=== PATIENT | male | born 1995 ===

== ENCOUNTER 2020-01-14 14:21 | Inpatient (IN) | payer MEDICAID, SELFPAY ==
[2020-01-14 14:29] VITALS: BMI 23.0
--- NOTE | 2020-01-14 14:31 | ED_ITS ---
HPI - SOB/Dyspnea General: Chief Complaint: Psychiatric Symptoms Stated Complaint: si Time Seen by Provider: 01/14/20 14:24 Source: patient Mode of arrival: ambulatory Limitations: no limitations History of Present Illness: HPI Narrative: 24-year-old male who states he has had suicidal thoughts for the last month. He is on duloxetine but states that it is not helping and he is had increasing suicidality. Patient voluntarily wants to be admitted. He denies any worsening or improving factors. Associated symptoms: Deny abdominal pain, chest pain, fever(s), nausea or vomiting Review of Systems Const: Denies: fever(s), chills, body aches or change in appetite Eyes: Denies: blurry vision or eye discomfort ENMT: Denies: throat pain or dental pain Card: Denies: chest pain Resp: Denies: dyspnea GI: Denies: abdominal pain, nausea, vomiting or diarrhea : Denies: dysuria Musc: Denies: neck pain or back pain Skin/Breast: Denies: rash Neuro: Denies: headache(s) Psych: Reports: depression and suicidal ideation Jesus/Lymph: Denies: easy bruising All/Imm: Denies: urticaria Physical Exam Const: COMMON NORMALS: no acute distress, patient oriented x3 and healthy appearing HENMT: COMMON NORMALS: normocephalic and atraumatic HEAD & SCALP: normocephalic and atraumatic Eye: COMMON NORMALS: Equal, round and reactive pupils present and EOMs intact bilaterally PUPIL: Yes Equal, round and reactive pupils present Neck/C-Spine: COMMON NORMALS: full ROM and supple Chest: COMMONS NORMALS: normal inspection of the chest and normal palpation of entire chest wall Resp: COMMON NORMALS: normal respiratory effort, No retractions, No use of accessory muscles and clear to auscultation bilaterally AUSCULTATION: clear to auscultation bilaterally Cardio: COMMON NORMALS: regular rate, regular rhythm and No murmurs present (Cardio) RATE: regular rate RHYTHM: regular rhythm GI: COMMON NORMALS: Normal to inspection, nondistended, normoactive bowel sounds present, Soft to palpation, non-tender and no masses PALPATION: Yes Soft to palpation Extremity: COMMON NORMALS: normal to inspection and full ROM Neuro: COMMON NORMALS: patient oriented x3, moves all extremities and no focal motor deficits Psych: COMMON NORMALS: mental status grossly normal, Normal thought process present and cooperative THOUGHT PROCESS: Normal thought process present THOUGHT CONTENT: Yes Suicidality present Skin: COMMON NORMALS: no rashes or lesions noted and no wounds GENERAL SKIN EXAM: no rashes or lesions noted Course Vital Signs: Vital signs: Vital Signs Temperature 98.2 F 01/14/20 14:33 Pulse Rate 90 01/14/20 14:33 Respiratory Rate 16 01/14/20 14:33 Blood Pressure 127/83 01/14/20 14:33 Pulse Oximetry 98 01/14/20 14:33 MDM - SOB/Dyspnea MDM Narrative: Medical decision making narrative: Patient presents here with suicidal ideation and patient is voluntary. I spoke to Dr. Villalpando of psychiatry and will admit. Patient is medically cleared. Lab Data: Labs: Lab Results 01/14/20 01/14/20 01/14/20 Range/Units 14:45 14:45 14:50 WBC 7.7 (4.0-10.0) 10^3/ uL RBC 4.82 (4.1-5.3) 10^6/u L Hgb 13.9 (11.7-16.6) g/dL Hct 42.6 (42.0-52.0) % MCV 88.4 (80-94) fL MCH 28.8 (28.0-34.0) pg MCHC 32.6 (30.0-36.0) g/dL RDW 12.4 (12.1-15.1) % Plt Count 255 (130-400) 10^3/c mm MPV 9.5 (7.4-10.4) fL Neut % (Auto) 56.5 % Lymph % (Auto) 34.7 % Thayer % (Auto) 6.8 % Eos % (Auto) 1.3 % Baso % (Auto) 0.4 % Neut # (Auto) 4.3 (1.8-7.7) 10^3/u L Lymph # (Auto) 2.7 (0.8-4.8) 10^3/u L Thayer # (Auto) 0.5 (0.2-0.9) 10^3/u L Eos # (Auto) 0.1 (0.0-0.8) 10^3/u L Baso # (Auto) 0.0 (0.0-0.1) 10^3/u L Nucleated RBC % (a uto) 0 % Nucleated RBCs # 0.0 /100WBC Sodium 140 (136-145) mmol/L Potassium 3.9 (3.5-5.1) mmol/L Chloride 102 (98-107) mmol/L Carbon Dioxide 27 (22-29) mmol/L Anion Gap 14.9 (5-19) BUN 9 (6-20) mg/dL Creatinine 0.9 (0.7-1.2) mg/dL GFR Calculation 104.6 (90-130) mL/min Glucose 100 (65-115) mg/dL Calculated Osmolal ity 286 (285-295) mOsm/k g Calcium 10.5 (8.5-10.5) mg/dL Total Bilirubin 0.4 (0.15-1.2) mg/dL AST 25 (0-40) U/L ALT 21 (0-41) U/L Alkaline Phosphata se 53 (40-130) IU/L Total Protein 7.6 (6.6-8.7) g/dL Albumin 5.0 (3.5-5.2) g/dL Globulin 2.6 (1.3-4.6) g/dL Salicylates < 0.3 L (3-10) mg/dL Urine Opiates Scre en Negative (Negative) ng/mL Acetaminophen < 5.0 L (10-30) ug/mL Ur Barbiturates Sc reen Negative (Negative) ng/mL Ur Phencyclidine S crn Negative (Negative) ng/mL Ur Amphetamines Sc reen Negative (Negative) ng/mL U Benzodiazepines Scrn Negative (Negative) ng/mL Urine Cocaine Scre en Negative (Negative) ng/mL U Marijuana (THC) Screen Positive H (Negative) ng/mL Ethyl Alcohol < 10 (0-10) mg/dL Discharge Plan Discharge Patient Disposition: Admitted As Inpatient Clinical Impression: Suicidal ideation Condition: Stable Referrals: Tamiko Alvarado APRN [Primary Care Provider] - Coding Level of Care Code ED Drive Away Driver for g Fwd Exam Comprehensive
[2020-01-14 14:33] VITALS: BP 127/83; PULSE 90; RESP 16; TEMP 36.8; O2SAT 98
[2020-01-14 14:55] LABS: Basophils % 0.4 %; Eosinophils # 0.1 10^3/uL (0.0-0.8); Eosinophils % 1.3 %; Hematocrit 42.6 % (42.0-52.0); Hemoglobin 13.9 g/dL (11.7-16.6); Lymphocytes # 2.7 10^3/uL (0.8-4.8); Lymphocytes % 34.7 %; Mean Corpuscular HGB Conc 32.6 g/dL (30.0-36.0); Mean Corpuscular Hemoglobin 28.8 pg (28.0-34.0); Mean Corpuscular Volume 88.4 fL (80-94); Mean Platelet Volume 9.5 fL (7.4-10.4); Monocytes # 0.5 10^3/uL (0.2-0.9); Monocytes % 6.8 %; Neutrophils # 4.3 10^3/uL (1.8-7.7); Neutrophils % 56.5 %; Nucleated Red Blood Cells % 0 %; Platelet Count 255 10^3/cmm (130-400); Red Blood Count 4.82 10^6/uL (4.1-5.3); Red Cell Distribution Width 12.4 % (12.1-15.1); White Blood Count 7.7 10^3/uL (4.0-10.0)
[2020-01-14 15:20] LABS: Amphetamines Screen Urine Negative (Negative); Barbiturates Screen Urine Negative (Negative); Benzodiazepines Screen Urine Negative (Negative); Cocaine Screen Urine Negative (Negative); Opiate Screen Urine Negative (Negative); PCP Screen Urine Negative (Negative); THC Screen Urine Positive (Negative)
[2020-01-14 15:21] LABS: Alanine Aminotransferase 21 U/L (0-41); Alkaline Phosphatase 53 IU/L (40-130); Anion Gap 14.9 (5-19); Aspartate Amino Transferase 25 U/L (0-40); Blood Urea Nitrogen 9 mg/dL (6-20); Calcium 10.5 mg/dL (8.5-10.5); Carbon Dioxide 27 mmol/L (22-29); Chloride 102 mmol/L (98-107); Globulin 2.6 g/dL (1.3-4.6); Glomerular Filtration Rate 104.6 mL/min (90-130); Glucose 100 mg/dL (65-115); Osmolality Calculated 286 mOsm/kg (285-295); Potassium 3.9 mmol/L (3.5-5.1); Sodium 140 mmol/L (136-145); Total Bilirubin 0.4 mg/dL (0.15-1.2); Total Protein 7.6 g/dL (6.6-8.7)
[2020-01-14 15:33] LABS: Acetaminophen < 5.0 ug/mL (10-30); Alcohol Level < 10 mg/dL (0-10); Salicylate < 0.3 mg/dL (3-10)
[2020-01-14 16:24] VITALS: RESP 16
[2020-01-14 16:35] VITALS: BP 121/100; PULSE 66; RESP 18; TEMP 36.2
[2020-01-14] MEDS: nicotine 21 mg Patch 1 PATCH TRANSDERMA (17:32)
--- NOTE | 2020-01-14 17:44 | PC.NURSE ---
pt note regarding nicotine patch. PTS WRIST IDENTIFICATIONJ BRACELET WOULD NOT SCAN ATTEMPTED REPLACING WRISTBAND SECOND BAND FAILED TO SCAN WELL. ADMINISTERED NICOTINE PATCH AFTER VERIFYING CLIENTS AND NAME BY HAVING CLIENT PROVIDE THIS INFORMATION TO ME. PATCH WAS ADMINISTERED TO CLIENTS RIGHT UPPER ARM.
--- NOTE | 2020-01-14 17:47 | PC.PHAR ---
PHARMACY NOTE CLIENTS IDENTIFICATION FAILED TO SCAN REPLACED IT WITH ANOTHER ID BRACELET WHICH ALSO FAILED TO SCAN. AT THIS POINT CLIENT WAS BECOMING QUITE AGITATED. ADMINISTERED NICOTINE TO CLIENTS RT UPPER ARM AFTER HAVING CLIENT CONFIRM HIS D.O.B AND FULL DAKOTAH PRIOR TO ADMINISTERING THE PATCH.
[2020-01-14 20:20] VITALS: BP 112/69; PULSE 76; RESP 18; TEMP 36.6; O2SAT 98
[2020-01-14] MEDS: hyDROXYzine 25 mg Capsule 50 MG PO (20:45)
[2020-01-14] MEDS: duloxetine 30 mg Capsule PO (20:45)
[2020-01-14] MEDS: trazodone 50 mg Tablet PO (20:45)
[2020-01-15 06:00] VITALS: BP 102/68; PULSE 54; RESP 16; TEMP 36.4; O2SAT 98
[2020-01-15] MEDS: duloxetine 30 mg Capsule PO ×2 (08:09→16:55)
--- NOTE | 2020-01-15 08:28 | P.HP_ITS ---
Providers/Chief Complaint Admitting Physician: Kwasi Villalpando Primary Care Provider: Tamiko Alvarado APRN Chief Complaint: si HPI NPU History of Present Illness Ramon Eduardo is a 24 year old male who had been doing well until about 6 weeks ago. He had been receiving duloxetine 30 mg/day and it was increased to twice daily dosage without improvement. He reports despondent mood, irritability, suicidal ideation, lack of motivation and other symptoms of a d epressive episode. He came in voluntarily because of suicidal ideation. The patient also complains of intense anxiety. He is constantly nervous and his duloxetine has not helped with this or his depression. He does not have a pain problem and it is being used strictly as a psychopharmacotherapeutic agent. The patient had his first hospitalization for depression several years ago. He cannot remember a specific drug that was actually helpful because most of the time he was abusing drugs, which he has now discontinued with the exception of cannabinoids. He is leery of discontinuing his duloxetine cold because he says, I hurt if he does not maintain consistent compliance. I assured him this would not be the case whatever pharmacotherapy we settle on. Review of Systems Narrative: Denies: fever(s), chills, body aches or change in appetite Eyes: Denies: blurry vision or eye discomfort ENMT: Denies: throat pain or dental pain Card: Denies: chest pain Resp: Denies: dyspnea GI: Denies: abdominal pain, nausea, vomiting or diarrhea : Denies: dysuria Musc: Denies: neck pain or back pain Skin/Breast: Denies: rash Neuro: Denies: headache(s) Psych: Reports: depression and suicidal ideation Hem/Lymph: Denies: easy bruising All/Imm: Denies: urticaria Meds NPU Home Medications Medication Instructions Recorded Confirmed Last Taken Type duloxetine 30 mg PO BID 01/14/20 01/15/20 01/14/20 History ibuprofen 200 - 800 mg PO PRN 01/14/20 01/14/20 Unknown History Allergies Allergy/AdvReac Type Severity Reaction Status Date / Time morphine Allergy ALGY-Hives Verified 01/14/20 14:36 PFSH NPU PFSH: Medical History (Updated 01/15/20 @ 08:52 by Kwasi Villalpando) Major depressive disorder with current active episode Family History (Updated 01/15/20 @ 08:47 by Kwasi Villalpando) Father , Accidental drug overdose in his 30s. Psychiatric illness, Onset Age: 16 Accidental drug overdose in his 30s Mother , Accidental drug overdose at age 32. Psychiatric illness, Onset Age: 16 Accidental drug overdose at age 33. Other Psychiatric History: Other Psychiatric History: The patient's been hospitalized once for depression. He also has a problem with rage, which nearly broke up his marriage, now more stable. He cannot think of any pharmacotherapeutic agent which was really helpful, since he has not been clean and sober until now. He does not know that noncompliance with the duloxetine causes him to hurt . Mental Status Exam MSE Comments: Mr. Navarro is a 24-year-old male who presents at his stated age. Habitus is somewhat disheveled. He is flattened, almost got. Mood is clearly depressed and affect is flat. Thought processes are integrated and free of any racing, blocking or looseness of association. Speech is of normal rate and volume, free of dysarthria, aprosody or pressure. There are no psychotic symptoms, such as but not limited to hallucinations, delusions, ideas of reference, etc. Cognitive functions are quite good. 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 He has no suicidal or homicidal ideation, plan or intent now that he has hope of meaningful treatment. He does complain of significant anxiety. There are no odd behaviors. Aims score is 0 Vitals/I&O/Wt Last Vital Signs Temp 97.5 F L 01/15/20 06:00 Pulse 54 L 01/15/20 06:00 Resp 16 01/15/20 06:00 BP 102/68 01/15/20 06:00 Pulse Ox 98 01/15/20 06:00 Weight last 48 hrs Weight 165 lb Data NPU : 01/14/20 14:45 01/14/20 14:45 A&P Assessment and plan (1) Major depressive disorder with current active episode: In light of the failed efficacy of duloxetine, I will proceed to sertraline titration, which has the potential to address his anxiety disorder as well as his depression I explained risks and benefits. He elects to proceed and is certainly competent, per my assessment today, to make that decision. Status: Acute (2) Suicidal ideation: We will monitor for safety and treat his depression and anxiety. Status: Acute Involuntary Hold Information 96 Hour Hold: 96 Hour Involuntary Admission: No Attestations NPU Medical Necessity Statement*: This is essentially an untreated depression. I anticipate 5 to 7 nights resolving the acute crisis and establishing a safe referral to aftercare Time Spent in Patient Care: Greater than 35 minutes (Review of the records, and interview of the patient for the first time. Documenting findings. Consultation with marketing planner and charge nurse.) (>than 50% of time spent in counselling and/or direct pt care on unit) . Total time spent with patient: 1 hour Coding Level of Care Code Acute Baker [employer]uit for g Fwd Diagnoses Major depressive disorder with current active episode F32.9 Suicidal ideation R45.852
[2020-01-15] MEDS: sertraline 50 mg Tablet PO (10:01)
[2020-01-15 13:31] VITALS: BP 108/50; PULSE 67; RESP 16; TEMP 36.8; O2SAT 98
[2020-01-15] MEDS: nicotine 21 mg Patch 1 PATCH TRANSDERMA (17:34)
[2020-01-15] MEDS: trazodone 50 mg Tablet PO (20:42)
[2020-01-15] MEDS: hyDROXYzine 25 mg Capsule 50 MG PO (20:49)
[2020-01-15] MEDS: acetaminophen 325 mg Tablet 650 MG PO (20:58)
[2020-01-15 21:41] VITALS: BP 104/64; PULSE 46; RESP 17; TEMP 36.8; O2SAT 83
--- NOTE | 2020-01-15 23:26 | PC.NURSE ---
Per pt request, pt was given Tylenol for headache and Trazodone for sleep.
[2020-01-16 06:00] VITALS: BP 91/49; PULSE 54; RESP 16; TEMP 36.4; O2SAT 98
[2020-01-16] MEDS: duloxetine 30 mg Capsule PO ×2 (08:23→17:05)
[2020-01-16] MEDS: sertraline 50 mg Tablet PO (08:23)
--- NOTE | 2020-01-16 11:21 | P.PN_ITS ---
Subjective NPU Subjective: Interval history: The patient remains significantly anxious. His mood is stabilizing and he may soon be free of suicidal ideation. He has tolerated 50 mg of sertraline without complications and I propose to titrate 200 mg directly on the fifth day of treatment. He will be out of the hospital before then. Medications: Reviewed: Yes Medication Review Details: Current Medications Acetaminophen (Tylenol) 650 mg PO Q4H PRN PRN Reason: MILD PAIN Last Admin: 01/15/20 20:58 Dose: 650 mg Documented by: Benztropine Mesylate (Cogentin) 1 mg PO BID PRN PRN Reason: Mild Extrapyramidal symptoms Camphor/Menthol/Phenol (Blistex) 1 applic TOPICAL Q1H PRN PRN Reason: DRYNESS Diphenhydramine HCl (Benadryl) 50 mg IM ONCE PRN PRN Reason: Severe Extrapyramidal Symptoms Diphenhydramine HCl (Benadryl) 50 mg IM Q4H PRN PRN Reason: Severe Aggression Duloxetine HCl (Cymbalta) 30 mg PO BID [facility] Last Admin: 01/16/20 08:23 Dose: 30 mg Documented by: Haloperidol (Haldol) 5 mg PO Q4H PRN PRN Reason: AGITATION Haloperidol Lactate (Haldol Inj) 5 mg IM Q4H PRN PRN Reason: Severe Aggression Hydroxyzine Pamoate (Vistaril) 50 mg PO Q6H PRN PRN Reason: ANXIETY Last Admin: 01/15/20 20:49 Dose: 50 mg Documented by: Loperamide HCl (Imodium Capsule) 2 mg PO Q6H PRN PRN Reason: DIARRHEA Lorazepam (Ativan) 2 mg IM Q4H PRN PRN Reason: Severe Aggression Nicotine (Nicoderm 21 Mg Patch) 1 patch TRANSDERMA DAILY PRN PRN Reason: NICOTINE WITHDRAWAL Last Admin: 01/15/20 17:34 Dose: 1 patch Documented by: Nicotine Polacrilex (Nicorette) 2 mg BUCCAL Q2H PRN PRN Reason: NICOTINE WITHDRAWAL Ondansetron HCl (Zofran) 4 mg PO Q6H PRN PRN Reason: NAUSEA AND VOMITING Sertraline HCl (Zoloft) 50 mg PO DAILY [facility] Last Admin: 01/16/20 08:23 Dose: 50 mg Documented by: Sertraline HCl (Zoloft) 100 mg PO DAILY [facility] Mental Status Exam MSE Comments: Mr. Navarro is a 24-year-old male who presents at his stated age. Habitus is somewhat disheveled. He is flattened, almost got. Mood is clearly depressed and affect is flat. Thought processes are integrated and free of any racing, blocking or looseness of association. Speech is of normal rate and volume, free of dysarthria, aprosody or pressure. There are no psychotic symptoms, such as but not limited to hallucinations, delusions, ideas of reference, etc. Cognitive functions are quite good. 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 He has little suicidal or homicidal ideation, plan or intent now that he has hope of meaningful treatment. He does complain of significant anxiety. There are no odd behaviors. Aims score is 0 Vitals/I&O/Wt Last Vital Signs Temp 97.6 F 01/16/20 06:00 Pulse 54 L 01/16/20 06:00 Resp 16 01/16/20 06:00 BP 91/49 01/16/20 06:00 Pulse Ox 98 01/16/20 06:00 Weight last 48 hrs Weight 165 lb Data NPU : 01/14/20 14:45 01/14/20 14:45 A&P Assessment and plan (1) Major depressive disorder with current active episode: Transition to sertraline proceeding apace. Status: Acute (2) Suicidal ideation: Burn nearly resolved. Status: Acute Involuntary Hold Information 96 Hour Hold: 96 Hour Involuntary Admission: No Attestations NPU Medical Necessity Statement*: I anticipate 2-3 nights hospitalization. Time Spent in Patient Care: Greater than 35 minutes (>than 50% of time spent in counselling and/or direct pt care on unit) . 50 minutes. Coding Level of Care Code Acute Radiator Mechanic for Nolberto Fwsebastián Diagnoses Major depressive disorder with current active episode F32.9 Suicidal ideation R45.851
--- NOTE | 2020-01-16 11:41 | PM.NPN ---
Subjective NPU Subjective: Interval history: The patient is less anxious today. He has incurred no complications of sertraline initiation. Medications: Reviewed: Yes Medication Review Details: Current Medications Acetaminophen (Tylenol) 650 mg PO Q4H PRN PRN Reason: MILD PAIN Last Admin: 01/15/20 20:58 Dose: 650 mg Documented by: Benztropine Mesylate (Cogentin) 1 mg PO BID PRN PRN Reason: Mild Extrapyramidal symptoms Camphor/Menthol/Phenol (Blistex) 1 applic TOPICAL Q1H PRN PRN Reason: DRYNESS Diphenhydramine HCl (Benadryl) 50 mg IM ONCE PRN PRN Reason: Severe Extrapyramidal Symptoms Diphenhydramine HCl (Benadryl) 50 mg IM Q4H PRN PRN Reason: Severe Aggression Duloxetine HCl (Cymbalta) 30 mg PO BID [facility] Last Admin: 01/16/20 08:23 Dose: 30 mg Documented by: Haloperidol (Haldol) 5 mg PO Q4H PRN PRN Reason: AGITATION Haloperidol Lactate (Haldol Inj) 5 mg IM Q4H PRN PRN Reason: Severe Aggression Hydroxyzine Pamoate (Vistaril) 50 mg PO Q6H PRN PRN Reason: ANXIETY Last Admin: 01/15/20 20:49 Dose: 50 mg Documented by: Loperamide HCl (Imodium Capsule) 2 mg PO Q6H PRN PRN Reason: DIARRHEA Lorazepam (Ativan) 2 mg IM Q4H PRN PRN Reason: Severe Aggression Nicotine (Nicoderm 21 Mg Patch) 1 patch TRANSDERMA DAILY PRN PRN Reason: NICOTINE WITHDRAWAL Last Admin: 01/15/20 17:34 Dose: 1 patch Documented by: Nicotine Polacrilex (Nicorette) 2 mg BUCCAL Q2H PRN PRN Reason: NICOTINE WITHDRAWAL Ondansetron HCl (Zofran) 4 mg PO Q6H PRN PRN Reason: NAUSEA AND VOMITING Sertraline HCl (Zoloft) 50 mg PO DAILY [facility] Last Admin: 01/16/20 08:23 Dose: 50 mg Documented by: Sertraline HCl (Zoloft) 100 mg PO DAILY [facility] Mental Status Exam MSE Comments: Mr. Navarro is a 24-year-old male who presents at his stated age. Habitus is less disheveled. Mood is clearly depressed and affect is flat. Thought processes are integrated and free of any racing, blocking or looseness of association. Speech is of normal rate and volume, free of dysarthria, aprosody or pressure. There are no psychotic symptoms, such as but not limited to hallucinations, delusions, ideas of reference, etc. Cognitive functions are quite good. 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 He has little suicidal or homicidal ideation, plan or intent now that he has hope of meaningful treatment. He does complain of significant anxiety. There are no odd behaviors. Aims score is 0 Vitals/I&O/Wt Last Vital Signs Temp 97.6 F 01/16/20 06:00 Pulse 54 L 01/16/20 06:00 Resp 16 01/16/20 06:00 BP 91/49 01/16/20 06:00 Pulse Ox 98 01/16/20 06:00 Weight last 48 hrs Weight 165 lb Data NPU : 01/14/20 14:45 01/14/20 14:45 Involuntary Hold Information 96 Hour Hold: 96 Hour Involuntary Admission: No Coding Level of Care Code Acute Regulatory Lead for Nolberto Landrum
[2020-01-16 12:34] VITALS: BP 100/65; PULSE 66; RESP 18; TEMP 37; O2SAT 99
[2020-01-16] MEDS: hyDROXYzine 25 mg Capsule 50 MG PO (19:52)
[2020-01-16 19:53] VITALS: BP 107/60; PULSE 79; RESP 16; TEMP 36.7; O2SAT 96
[2020-01-16] MEDS: nicotine 2 mg Gum BUCCAL (19:53)
--- NOTE | 2020-01-16 23:55 | PC.NURSE ---
Pt given Nicorette gum and Vistaril this evening per pt request
[2020-01-17 06:00] VITALS: BP 103/68; PULSE 50; RESP 16; TEMP 36.5; O2SAT 97
[2020-01-17] MEDS: nicotine 21 mg Patch 1 PATCH TRANSDERMA (06:30)
[2020-01-17] MEDS: sertraline 50 mg Tablet PO (09:58)
[2020-01-17] MEDS: duloxetine 30 mg Capsule PO (09:58)
[2020-01-17 10:14] VITALS: BP 103/68; PULSE 50; RESP 16; TEMP 36.5; O2SAT 97
--- NOTE | 2020-01-17 10:29 | PC.NURSE ---
PT NOTE: PATIENT RX CALLED INTO [facility], DISCHARGE DOCTOR ACCIDENTALLY PUT A ZERO FOR QUANTITY ON PT DULOXETINE, INFORMED PHYSICIAN OF OVERSIGHT AND THIS NURSE WAS ASKED TO CALL IN QUANTITY OF 60 ON DULOXETINE.
--- NOTE | 2020-02-02 07:03 | P.DS_ITS ---
Diagnoses at Discharge Discharge Diagnosis (1) Major depressive disorder with current active episode: Status: Acute Problem details: Ramon Eduardo is a 24 year old male who had been doing well until about 6 weeks ago. He had been receiving duloxetine 30 mg/day and it was increased to twice daily dosage without improvement. He reports despondent mood, irritability, suicidal ideation, lack of motivation and other symptoms of a depressive episode. He came in voluntarily because of suicidal ideation. The patient also complains of intense anxiety. He is constantly nervous and his duloxetine has not helped with this or his depression. He does not have a pain problem and it is being used strictly as a psychopharmacotherapeutic agent. The patient had his first hospitalization for depression several years ago. He cannot remember a specific drug that was actually helpful because most of the time he was abusing drugs, which he has now discontinued with the exception of cannabinoids. He is leery of discontinuing his duloxetine cold turkey because he says, I hurt if he does not maintain consistent compliance. I assured him this would not be the case whatever pharmacotherapy we se (2) Suicidal ideation: Status: Resolved Problem details: He has had suicidal thoughts for the last month. He is on duloxetine but states that it is not helping and he is had increasing suicidality. Patient voluntarily wants to be admitted. He denies any worsening or improving factors. Associated symptoms: Deny abdominal pain, chest pain, fever(s), nausea or vomiting Reason for Visit Reason for Visit: si Brief History: Depression with suicidal ideation. Hospital Course Hospital Course Day 1: Initial interview assessment of clinical situation and formulation of proposed treatment plan. Consultation with naval surface fire support planner and charge nurse. Day 2: The patient seems calmer but complains of intense anxiety. He has not incurred significant complications of sertraline. At this time more on the patient's mood improved. His suicidal ideation waned. Involuntary Hold Information 96 Hour Hold: 96 Hour Involuntary Admission: No Mental Status Exam MSE Comments: 24-year-old male who presents at his stated age. Habitus is somewhat disheveled. Mood is no longer depressed and affect is appropriate and variegated. Thought processes are integrated and free of any racing, blocking or looseness of association. Speech is of normal rate and volume, free of dysarthria, aprosody or pressure. There are no psychotic symptoms, such as but not limited to hallucinations, delusions, ideas of reference, etc. Cognitive functions are quite good. 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 He has no suicidal or homicidal ideation, plan or intent and is looking forward to meaningful treatment. Discharge Data Vitals: Last Vital Signs Temp 97.7 F 01/17/20 10:14 Pulse 50 L 01/17/20 10:14 Resp 16 01/17/20 10:14 BP 103/68 01/17/20 10:14 Pulse Ox 97 01/17/20 10:14 Discharge Plan Discharge Patient Disposition: Home, Self-Care Condition: Stable Prescriptions: New duloxetine 30 mg Capsule,Delayed Release(Dr/Ec) 30 mg PO BID 30 Days Qty: 0 RF: 0 sertraline 100 mg Tablet 100 mg PO DAILY Qty: 30 RF: 0 Discontinued ibuprofen 200 mg Tablet 200 - 800 mg PO PRN RF: 0 duloxetine 30 mg capsule,delayed release(DR/EC) 30 mg PO BID RF: 0 Discharge Orders: Discharge Order (Routine); Ordered 01/17/20 Ordered By: Kwasi Villalpando Referrals: [facility] [Other] (Referred for medication management and therapy, CBT therapy has been recommended by Dr. Villalpando. They will contact you with appointment time.) Tamiko Alvarado APRN [Primary Care Provider] - 4-7 days (Schedule a hospital follow up appointment to continue medications.) Discharge Diet: Usual diet Discharge Activity: Resume usual activity Patient Instructions: Sertraline (By mouth), Duloxetine (By mouth), Depression (DC) Discharge Date/Time: 01/17/20 13:15 Discharge Attestations NPU Time Spent in Discharge Care*: greater than 30 min Specific Discharge Activities: Specific discharge activities: educating patient, discussing with pcp/other providers, discussing with caser/social workers/dc planners, documenting/other paperwork and evaluating patient/reviewing data Status at Discharge: Cognitive status at discharge: cognitively intact , Behavioral status at discharge: cooperative , Functional status at discharge: independent ambulation Overall status at discharge: patient is progressing back to baseline Coding Level of Care Code Acute Insole Coverer for Nolberto Fwsebastián Diagnoses Major depressive disorder with current active episode F32.9 Suicidal ideation R45.851
== END 2020-01-17 13:15 | disposition home or self-care (01) | DRG 881 ==
LOC: ER 15:41 → NP 15:55
PROVIDERS: Emergency Medicine; PCP Nurse Practitioner Family
DX: F32.9 Major depressive disorder, single episode, unspecified (principal); R45.851 Suicidal ideations; F41.9 Anxiety disorder, unspecified
CPT/HCPCS: 12345; 36415; 80053; 80306; 80307; 85025; 99284